=== PATIENT | male | born 1980 | race African-American/Black ===

== ENCOUNTER 2023-10-12 03:40 | Emergency (ER) | payer SELFPAY ==
[2023-10-12] MEDS ORDERED: MAGNES/ALUMIN/SIMET 30ML UCUP ONE (04:00)
[2023-10-12] MEDS ORDERED: DICYCLOMINE HCL 20 MG/2 ML AMP IM ONE (04:00)
[2023-10-12] MEDS ORDERED: FAMOTIDINE 20 MG/2 ML VIAL IV ONE (04:01)
[2023-10-12 04:26] LABS: Absolute Basophils 0.1 K/uL (0-0.5); Absolute Eosinophils 0.2 K/uL (0-0.5); Absolute Monocytes 0.6 K/uL (0.1-1.3); Absolute Neutrophil 3.5 K/uL (1.8-8.0); Basophils % 0.7 % (0-1.3); Eosinophils % 3.3 % (0-4.4); Hematocrit 38.6 % (39.6-49.0); Hemoglobin 13.2 g/dL (13.6-17.9); Lymphocytes % 40.3 % (15.3-44.8); MCH 29.3 pg (27.0-35.0); MCHC 34.1 g/dL (32.0-36.0); MPV 9.9 fL (7.6-11.3); Neutrophils % 47.7 % (41.7-73.7); Nucleated Red Blood Cells % 0.1 % (0-0); Platelets 185 thou/uL (152-406); RBC Red Blood Cell Count 4.49 M/uL (4.33-5.43)
[2023-10-12 04:36] LABS: Albumin 4.1 g/dL (3.4-5.0); Anion Gap 6.7 mEq/L (5.0-15.0); Bilirubin Total 0.3 mg/dL (0.2-1.0); Globulin 4.1 g/dL (2.3-3.5); Potassium 3.7 mEq/L (3.5-5.1); Protein, Total 8.2 g/dL (6.4-8.2)
--- NOTE | 2023-10-12 07:44 | EDPHYS ---
Physician Documentation [facility] Name: Kishan Currie Age: 42 yrs Sex: Male : 1980 Arrival Date: 10/12/2023 Time: 03:40 Bed 2 Private MD: ED Physician Tim Godfrey HPI: 10/11 04:32 This 42 yrs old Black Male presents to ER via Ambulatory with complaints of Abdominal rt Pain. 04:32 Patient presents to the ED with epigastric pain starting about 2 hours ago. Patient rt states that he ate fries, grilled cheese for dinner. The patient reports nausea, vomiting. Denies other acute complaints, symptoms are moderate in severity, no other aggravating or alleviating factors.. Historical: - Allergies: 03:51 No Known Allergies; lg3 - Home Meds: 03:51 None [Active]; lg3 - PMHx: 03:51 None; lg3 - PSHx: 03:51 None; lg3 - Immunization history:: Adult Immunizations up to date. - Infectious Disease History:: Denies. - Social history:: Smoking status: Patient reports the use of cigarette tobacco products, smokes one-half pack cigarettes per day, Patient uses alcohol, admits to "couple of beers" a day. street drugs, marijuana. - Family history:: not pertinent. ROS: 04:32 Constitutional: Negative for fever, chills, and weight loss, Cardiovascular: Negative rt for chest pain, palpitations, and edema, Respiratory: Negative for shortness of breath, cough, wheezing, and pleuritic chest pain, MS/Extremity: Negative for injury and deformity, Skin: Negative for injury, rash, and discoloration, Neuro: Negative for headache, weakness, numbness, tingling, and seizure, 04:32 Abdomen/GI: Positive for abdominal pain, nausea, Negative for vomiting, Exam: 04:32 Constitutional: This is a well developed, well nourished patient who is awake, alert, rt and in no acute distress. Head/Face: Normocephalic, atraumatic. Chest/axilla: Normal chest wall appearance and motion. Nontender with no deformity. No lesions are appreciated. Cardiovascular: Regular rate and rhythm with a normal S1 and S2. No gallops, murmurs, or rubs. Normal PMI, no JVD. No pulse deficits. Respiratory: Lungs have equal breath sounds bilaterally, clear to auscultation and percussion. No rales, rhonchi or wheezes noted. No increased work of breathing, no retractions or nasal flaring. Skin: Warm, dry with normal turgor. Normal color with no rashes, no lesions, and no evidence of cellulitis. MS/ Extremity: Pulses equal, no cyanosis. Neurovascular intact. Full, normal range of motion. Neuro: Awake and alert, GCS 15, oriented to person, place, time, and situation. Cranial nerves II-XII grossly intact. Motor strength 5/5 in all extremities. Sensory grossly intact. Cerebellar exam normal. Normal gait. 04:32 Abdomen/GI: Mild tenderness to the epigastrium without rebound, guarding, distention, Vital Signs: 03:50 BP 148 / 88; Pulse 79; Resp 16 S; Temp 98.1(O); Pulse Ox 100% on R/A; Weight 74.84 kg lg3 (R); Height 5 ft. 7 in. (R); Pain 5/10; 04:15 BP 142 / 97; Pulse 77; Resp 18; Temp 98.3; Pulse Ox 100% on R/A; Pain 3/10; rg5 05:09 BP 134 / 93; Pulse 66; Resp 17; Temp 98.3; Pulse Ox 100% ; Pain 3/10; bm8 06:00 BP 134 / 87; Pulse 68; Resp 16 S; Pulse Ox 100% on R/A; lc8 07:07 BP 137 / 90; Pulse 65; Resp 20; Temp 98; Pulse Ox 100% ; Pain 3/10; bm8 03:50 Body Mass Index 25.84 (74.84 kg, 170.18 cm) lg3 03:50 Pain Scale: Adult lg3 04:15 Pain Scale: Adult rg5 05:09 Pain Scale: Adult bm8 07:07 Pain Scale: Adult bm8 Melvin Coma Score: 04:15 Eye Response: spontaneous(4). Motor Response: obeys commands(6). Verbal Response: rg5 oriented(5). Total: 15. 05:09 Eye Response: spontaneous(4). Motor Response: obeys commands(6). Verbal Response: bm8 oriented(5). Total: 15. 07:07 Eye Response: spontaneous(4). Motor Response: obeys commands(6). Verbal Response: bm8 oriented(5). Total: 15. MDM: 03:51 Patient medically screened. rt 07:18 Data reviewed: vital signs. ED course: Patient signed out to me by previous physician, ec2 in brief patient arrives today for evaluation of upper abdominal pain. Lab work shows a reassuring CBC, reassuring metabolic profile with renal dysfunction abnormality. Lipase within normal ranges. CT scan of the abdomen pelvis showed questionable filling defects of the chest, CT angio of the chest was subsequently ordered. Also possible cystitis noted. Will obtain urine studies as well. Plan to follow-up CT scan of the chest and urine studies. . 07:40 ED course: Patient states that he did not want to obtain a CT scan of the chest, states ec2 that he did not want to know if there is blood clots in his lung. I will discharge him to home and instructed on return precautions and potential that the blood counts can cause significant issue. Patient expressed understanding.. 10/11 03:56 Order name: CBC with Diff; Complete Time: 04:37 rt 10/11 03:56 Order name: CMP; Complete Time: 04:37 rt 10/11 03:56 Order name: Lipase; Complete Time: 04:37 rt 10/11 03:56 Order name: CT Abd/Pelvis - IV Contrast Only rt 10/11 03:56 Order name: IV Saline Lock; Complete Time: 04:06 rt 10/11 03:56 Order name: Labs collected and sent; Complete Time: 04:02 rt Administered Medications: 04:06 Drug: Famotidine IVP 20 mg IVP once; dilute with 10 mL 0.9% NaCl; give over 2 minutes bm8 Route: IVP; Site: right antecubital; 05:11 Follow up: Response: No adverse reaction bm8 04:06 Drug: Dicyclomine IM 20 mg IM once Route: IM; Site: left deltoid; bm8 05:11 Follow up: Response: No adverse reaction bm8 04:06 Drug: Alum-Mag Hydroxide-Simeth PO Suspension (200 mg-200 mg-20 mg/5 mL) 30 ml PO once bm8 Route: PO; 05:11 Follow up: Response: No adverse reaction bm8 Disposition Summary: 10/12/23 07:43 Discharge Ordered Notes: Location: Home ec2 Condition: Stable ec2 Diagnosis - Acute gastritis ec2 Followup: ec2 - With: Private Physician - When: - Reason: Re-evaluation by your physician Discharge Instructions: - Discharge Summary Sheet ec2 - Gastritis, Adult, [id number] ec2 Forms: - Medication Reconciliation Form ec2 - Antibiotic Education ec2 - Prescription Opioid Use ec2 - Patient Portal Instructions ec2 - Leadership Thank You Letter ec2 Prescriptions: - Pepcid 20 mg Oral Tablet - take 1 tablet ORAL route once daily; 20 tablet; Refills: 0, Product Selection ec2 Permitted Signatures: Dispatcher [employer] Syeda Sheikh RN RN lg3 Valentino Resendez MD MD rt Tim Godfrey MD MD ec2 Brian Penaloza, RN RN bm8 Corrections: (The following items were deleted from the chart) 03:52 03:51 PSHx: Unable to Obtain; lg3 lg3
--- NOTE | 2023-10-12 07:44 | ER ---
Nurse's Notes [facility] Name: Kishan Currie Age: 42 yrs Sex: Male : 1980 Arrival Date: 10/12/2023 Time: 03:40 Bed 2 Private MD: Diagnosis: Acute gastritis Presentation: 10/11 03:50 Chief complaint: Patient states: upper abdominal pain X1 hour. Coronavirus screen: lg3 Client denies travel out of the [place] in the last 14 days. At this time, the client does not indicate any symptoms associated with coronavirus-19. Ebola Screen: No symptoms or risks identified at this time. Initial Sepsis Screen: Does the patient meet any 2 criteria? No. Patient's initial sepsis screen is negative. Does the patient have a suspected source of infection? No. Patient's initial sepsis screen is negative. Risk Assessment: Do you want to hurt yourself or someone else? Patient reports no desire to harm self or others. Onset of symptoms was October 12, 2023. 03:50 Method Of Arrival: Ambulatory lg3 03:50 Acuity: GERRI 3 lg3 Triage Assessment: 03:51 General: Appears in no apparent distress. uncomfortable, Behavior is calm, cooperative. lg3 Pain: Complains of pain in right upper quadrant and left upper quadrant Pain does not radiate. Pain currently is 5 out of 10 on a pain scale. EENT: No deficits noted. No signs and/or symptoms were reported regarding the EENT system. Neuro: No deficits noted. Sterling Agitation-Sedation Scale (RASS): 0 - Alert and Calm Level of Consciousness is awake, alert, obeys commands, Oriented to person, place, time, situation. Cardiovascular: No deficits noted. Denies chest pain, shortness of breath, Capillary refill < 3 seconds Clubbing of nail beds is absent JVD is absent Patient's skin is warm and dry. Respiratory: No deficits noted. Airway is patent Respiratory effort is even, unlabored, Respiratory pattern is regular, symmetrical. GI: Abdomen is round non-distended, Reports upper abdominal pain, nausea. : No deficits noted. No signs and/or symptoms were reported regarding the genitourinary system. Derm: No deficits noted. No signs and/or symptoms reported regarding the dermatologic system. Skin is intact, is healthy with good turgor, Skin is dry, Skin is normal, Skin temperature is warm. Musculoskeletal: No deficits noted. No signs and/or symptoms reported regarding the musculoskeletal system. Circulation, motion, and sensation intact. Range of motion: intact in all extremities. Historical: - Allergies: 03:51 No Known Allergies; lg3 - Home Meds: 03:51 None [Active]; lg3 - PMHx: 03:51 None; lg3 - PSHx: 03:51 None; lg3 - Immunization history:: Adult Immunizations up to date. - Infectious Disease History:: Denies. - Social history:: Smoking status: Patient reports the use of cigarette tobacco products, smokes one-half pack cigarettes per day, Patient uses alcohol, admits to "couple of beers" a day. street drugs, marijuana. - Family history:: not pertinent. Screenin:18 [facility] ED Fall Risk Assessment (Adult) History of falling in the last 3 months, lc8 including since admission No falls in past 3 months (0 pts) Confusion or Disorientation No (0 pts) Intoxicated or Sedated No (0 pts) Impaired Gait No (0 pts) Mobility Assist Device Used No (0 pt) Altered Elimination No (0 pt) Score/Fall Risk Level 0 - 2 = Low Risk. Abuse screen: Denies threats or abuse. Denies injuries from another. Nutritional screening: No deficits noted. Tuberculosis screening: No symptoms or risk factors identified. Assessment: 04:14 General: Appears in no apparent distress. comfortable, Behavior is calm, cooperative. lc8 Neuro: Level of Consciousness is awake, alert, obeys commands, Oriented to person, place, time, situation. Neuro: Level of Consciousness is awake, alert, obeys commands, Oriented to person, place, time, situation. Cardiovascular: Capillary refill < 3 seconds Patient's skin is warm and dry. Respiratory: Airway is patent Respiratory pattern is regular, symmetrical. GI: Reports lower abdominal pain, upper abdominal pain, Patient currently denies constipation, diarrhea, vomiting. 04:16 Derm: No deficits noted. Musculoskeletal: No deficits noted. 8 04:18 GI: Bowel sounds present X 4 quads. Abdomen is tender to palpation in epigastric area. 8 05:09 Reassessment: Patient appears in no apparent distress at this time. No changes from bm8 previously documented assessment. Patient and/or family updated on plan of care and expected duration. Pain level reassessed. Patient is alert, oriented x 3, equal unlabored respirations, skin warm/dry/pink. Patient states feeling better. Patient states symptoms have improved. 07:07 Reassessment: Patient appears in no apparent distress at this time. No changes from bm8 previously documented assessment. Patient and/or family updated on plan of care and expected duration. Pain level reassessed. Patient is alert, oriented x 3, equal unlabored respirations, skin warm/dry/pink. Patient states feeling better. Patient states symptoms have improved. Vital Signs: 03:50 BP 148 / 88; Pulse 79; Resp 16 S; Temp 98.1(O); Pulse Ox 100% on R/A; Weight 74.84 kg lg3 (R); Height 5 ft. 7 in. (R); Pain 5/10; 04:15 BP 142 / 97; Pulse 77; Resp 18; Temp 98.3; Pulse Ox 100% on R/A; Pain 3/10; rg5 05:09 BP 134 / 93; Pulse 66; Resp 17; Temp 98.3; Pulse Ox 100% ; Pain 3/10; bm8 06:00 BP 134 / 87; Pulse 68; Resp 16 S; Pulse Ox 100% on R/A; lc8 07:07 BP 137 / 90; Pulse 65; Resp 20; Temp 98; Pulse Ox 100% ; Pain 3/10; bm8 03:50 Body Mass Index 25.84 (74.84 kg, 170.18 cm) lg3 03:50 Pain Scale: Adult lg3 04:15 Pain Scale: Adult rg5 05:09 Pain Scale: Adult bm8 07:07 Pain Scale: Adult bm8 Melvin Coma Score: 04:15 Eye Response: spontaneous(4). Motor Response: obeys commands(6). Verbal Response: rg5 oriented(5). Total: 15. 05:09 Eye Response: spontaneous(4). Motor Response: obeys commands(6). Verbal Response: bm8 oriented(5). Total: 15. 07:07 Eye Response: spontaneous(4). Motor Response: obeys commands(6). Verbal Response: bm8 oriented(5). Total: 15. ED Course: 03:42 Patient arrived in ED. jj6 03:42 Valentino Resendez MD is Attending Physician. rt 03:51 Triage completed. lg3 03:51 Arm band placed on right wrist. lg3 03:55 Inserted saline lock: 20 gauge in right antecubital area, using aseptic technique. f Blood collected. 04:02 CBC with Diff Sent. lc8 04:02 CMP Sent. lc8 04:02 Lipase Sent. lc8 04:19 Patient has correct armband on for positive identification. Call light in reach. Side lc8 rails up X 1. Side rails up X2. 04:50 CT Abd/Pelvis - IV Contrast Only In Process Unspecified. EDMS 05:09 Brian Penaloza, RN is Primary Nurse. bm8 05:09 Client placed on continuous cardiac and pulse oximetry monitoring. NIBP monitoring bm8 applied. vehicle monitor technician on. Pulse ox on. NIBP on. Door closed. Noise minimized. Lights dimmed. Warm blanket given. Verbal reassurance given. Head of bed lowered. 05:09 No provider procedures requiring assistance completed. bm8 07:01 Attending Physician role handed off by Valentino Resendez MD ec2 07:01 Tim Godfrey MD is Attending Physician. ec2 07:07 Report given to mathieu daily. bm8 07:47 IV discontinued, intact, bleeding controlled, No redness/swelling at site. Pressure ko1 dressing applied. Administered Medications: 04:06 Drug: Famotidine IVP 20 mg IVP once; dilute with 10 mL 0.9% NaCl; give over 2 minutes bm8 Route: IVP; Site: right antecubital; 05:11 Follow up: Response: No adverse reaction bm8 04:06 Drug: Dicyclomine IM 20 mg IM once Route: IM; Site: left deltoid; bm8 05:11 Follow up: Response: No adverse reaction bm8 04:06 Drug: Alum-Mag Hydroxide-Simeth PO Suspension (200 mg-200 mg-20 mg/5 mL) 30 ml PO once bm8 Route: PO; 05:11 Follow up: Response: No adverse reaction bm8 Medication: 04:19 VIS not applicable for this client. lc8 Outcome: 07:43 Discharge ordered by . ec2 07:47 Discharged to home ambulatory, ko1 07:47 Condition: stable 07:47 Discharge instructions given to patient, Instructed on discharge instructions, follow up and referral plans. medication usage, Demonstrated understanding of instructions, follow-up care, medications, Prescriptions given X 1, 07:49 Patient left the ED. ko1 Signatures: Dispatcher [employer] Syeda Sheikh, RN RN lg3 Anastasiya Christianj6 Char Lakhani RN RN ko1 Valentino Resendez MD MD rt Corral, Edwin, MD MD ec2 Erika Sullivan [facility] Brian Penaloza RN RN bm8 Luis Fernando Erazo RN RN rg5 Taylor Dasilva RN RN lc8 Corrections: (The following items were deleted from the chart) 03:52 03:51 PSHx: Unable to Obtain; lg3 lg3 04:18 04:14 Neuro: Level of Consciousness is awake, alert, obeys commands, Oriented to lc8 person, place, time, situation, lc8 04:18 04:14 GI: Reports lower abdominal pain, 8 8
[2023-10-12 08:07] VITALS: BP 137/90; TEMP 98; O2SAT 100
--- NOTE | 2023-10-12 18:55 | RAD REPORT ---
EXAM DESCRIPTION: CT - Abdomen Pelvis W Contrast - 10/12/2023 7:[address] Abdomen and Pelvis With Intravenous Contrast CLINICAL HISTORY: The patient is 42 years old and is Male; Abdominal pain TECHNIQUE: Axial computed tomography images of the abdomen and pelvis with intravenous contrast. S agittal and coronal reformatted images were created and reviewed. This CT exam was performed using one or more of the following dose reduction techniques: automated exposure control, adjustment of t he mA and/or kV according to patient size, and/or use of iterative reconstruction technique. COMPARISON: None FINDINGS: LUNG BASES: Questionable filling defect within the left lower lobe segmental pulmonary a rtery branches. No consolidation. ABDOMEN: LIVER: Unremarkable No mass. GALLBLADDER AND BILE DUCTS: Unremarkable No calcified stones. No ductal dilation. PANCREAS: Unremarkable No mass. No ductal dilation. SPLEEN: Unremarkable No splenomegaly. ADRENALS: Unremarkable No mass. KIDNEYS AND URETERS: Unremarkable No solid mass. No hydronephrosis. STOMACH AND BOWEL: Redundancy of the sigmoid colon. No mucosal thickening. No evidence of small or large bowel obstruction. PELVIS: APPENDIX: No findings to suggest acute appendicitis. BLADDER: Circumferential urinary bladder wall thickening and perivesicular fat stranding, compatibl e with cystitis. REPRODUCTIVE: Unremarkable as visualized. ABDOMEN and PELVIS: INTRAPERITONEAL SPACE: Unremarkable No free air. No significant fluid collection. BONES/JOINTS: No acute fracture. No dislocation. SOFT TISSUES: Unremarkable VASCULATURE: See above. LYMPH NODES: Unremarkable No enlarged lymph nodes. IMPRESSION: 1. Circumferential urinary bladder wall thickening and perivesicular fat stranding, co mpatible with cystitis. 2. Questionable filling defects within several left lower lobe pulmonary vascular branches. Possibl e artifact, but could not exclude small pulmonary emboli. Consider further evaluation by CTA chest or VQ scan if clinically suspected. 3. No other acute findings in the abdomen or pelvis. Dr. Yi discussed these findings with Dr. Valentino Resendez via telephone at approximately 07:26 hour s EST on 10/12/2023. Electronically signed by: Jason Yi MD 10/12/2023 06:27 AM CDT RP Due to temporary technical issues with the PACS/Fluency reporting system, reports are being signed by the in house radiologists without review as a courtesy to insure prompt reporting. The interpreting radiologist is fully responsible for the content of the report.
== END 2023-10-12 07:49 | disposition home or self-care (01) ==
LOC: ER 03:40
DX: K29.00 Acute gastritis without bleeding (principal)
CPT/HCPCS: 36415; 74177; 80053; 83690; 85025; 96372; 96374; 99285; J0500; Q9967